=== PATIENT | male | born 1935 | race Caucasian/White ===

== ENCOUNTER 2018-01-10 07:44 | Outpatient (CLI) | payer MEDICARE, OTHER ==
--- NOTE | 2018-01-10 11:34 | PET ---
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 Exam requested for staging. TECHNIQUE: PET scanning with CT attenuation correction was performed from the vertex through thighs following th e intravenous administration of 9.3 mCi F18-FDG in the left antecubital fossa. Imaging was performed after an uptake interval of 54 minutes. COMPARISON: None. CORRELATION: CT neck dated 12/23/17 from [facility] [place]. FINDINGS: There is hypermetabolic activity in the left parotid mass with a SUV of 12.2. No jaspal hypermetabolism is seen in the neck, chest, axilla, abdomen, pelvis, or inguinal regions. No hypermetabolic pulmonary nodules, liver, adrenal, or skeletal lesions are seen. There is physiologic activity in the GI and tracts and the brain. The CT scan used for attenuation correction demonstrates no evidence of pleural effusions or ascites. There is sigmoid diverticulosis and a small hiatal hernia. IMPRESSION: Left parotid gland malignancy without evidence of metastatic disease. POS: [facility]
== END 2018-01-10 07:45 | disposition home or self-care (01) ==
LOC: PET 07:44
PROVIDERS: ATTEND Internal Medicine Hematology & Oncology
DX: C07 Malignant neoplasm of parotid gland (principal)
CPT/HCPCS: 78815; A9552

== ENCOUNTER 2018-01-29 08:10 | Day surgery (SDC) | payer MEDICARE, OTHER ==
[2018-01-28 12:14] VITALS: BMI 25.0
[2018-01-29] MEDS ORDERED: Lidocaine 2% PF 5 ML VIAL ONE (10:03)
[2018-01-29] MEDS ORDERED: Bupivacaine/Epinephrine 0.25% 30 ML VIAL ONE (10:03)
[2018-01-29] MEDS ORDERED: CEFAZOLIN 2 GM/50 ML BAG ONE (10:17)
[2018-01-29] MEDS ORDERED: Fentanyl 100 MCG/2 ML VIAL ONE (10:29)
--- NOTE | 2018-01-29 13:28 | RAD ---
FRONTAL RADIOGRAPH CHEST: Date: 01-29-18 Comparison: None. History: Evaluate chest following Mediport placement. FINDINGS: There are degenerative changes involving the acromioclavicular and coracoclavicular interspace on the right. There is right sided port-a-cath with distal tip overlying the region of the SVC. There is no pneumothorax or pleural fluid and no focal consolidation or alveolar edema. IMPRESSION: Right sided port-a-cath with no evidence for pneumothorax. POS: [facility]
--- NOTE | 2018-01-31 13:23 | PDOC.OP ---
Operative Note - Operative Note Operative Note: PROCEDURE: Right internal jugular MediPort placement with ultrasound and fluoroscopic guidance SURGEON: Digna Fuentes M.D. 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 Chemotherapy has been recommended and the oncologist has requested MediPort placement for this. OPERATIVE PROCEDURE IN DETAIL: After informed consent was obtained and appropriate preoperative antibiotics were administered, the patient was taken to the operating room and placed in supine position and monitored anesthesia care was administered. The patient was then placed in Trendelenburg position and the subclavian vein accessed easily on the first attempt with excellent flow of dark venous non-pulsatile blood. A wire threaded easily and it repeatedly went up into the right IJ instead of into the superior vena cava despite multiple efforts to direct it downward. The decision was made to place the Mediport in the right internal jugular vein. A sterile ultrasound probe was used to find the patent compressible vein which was accessed under direct ultrasound guidance. A wire advanced easily and was confirmed to be in the patent compressible vein by ultrasound and the tip in the superior vena cava by fluoroscopy. Additional local anesthesia was infused to the skin and subcutaneous tissues of the right neck and chest. A skin incision was made on the right chest and a subcutaneous pocket developed inferiorly. A Mediport was obtained and confirmed to fit in the subcutaneous pocket. This was secured inferiorly to the pectoralis fascia with a Prolene suture, which was clamped, but not tied. The Mediport tubing was then tunneled from this area to the right IJ access site. A dilator and sheath were then placed over the wire and the dilator and wire removed leaving the sheath in place. The clamped MediPort tubing was placed through the sheath, which was then split and removed leaving the MediPort tubing in place. The tubing was adjusted until the tip was confirmed by fluoroscopy to be in the superior vena cava just above the atrium. The tubing was clamped at the skin level at the chest and cut and the tubing secured to the port, which was then placed in the subcutaneous pocket. The previously placed suture was secured and two additional sutures were placed to fix the port in place within the pocket. The port was aspirated with the Johnston needle and had excellent flow of dark venous non-pulsatile blood and easily flushed without resistance. The subcutaneous tissues were closed with a running Monocryl suture, following which the skin was closed with a running subcuticular Monocryl suture. Dermabond dressings were placed and the hub was again accessed through the skin and confirmed to easily aspirate and easily flush. The course of the catheter was confirmed by fluoroscopy to be smooth with the tip appropriately located in the superior vena cava. The patient was taken her back to the day stay unit in good condition. Estimated blood loss was minimal. There were no complications. There were no specimens.
== END 2018-01-30 12:25 | disposition home or self-care (01) ==
LOC: SDC 08:10
PROVIDERS: ATTEND Surgery
PROC: 0JH63WZ Insertion of Totally Implantable Vascular Access Device into Chest Subcutaneous Tissue and Fascia, Percutaneous Approach (ICD-10-PCS; principal; 2018-01-29)
DX: C07 Malignant neoplasm of parotid gland (principal); E11.9 Type 2 diabetes mellitus without complications; Z79.84 Long term (current) use of oral hypoglycemic drugs; Z79.899 Other long term (current) drug therapy; Z88.2 Allergy status to sulfonamides
CPT/HCPCS: 36561; 71045; C1788; J1642; J2001; J3010

== ENCOUNTER 2018-04-28 13:57 | Outpatient (CLI) | payer MEDICARE, OTHER ==
[~2018-04-28 13:57] MED LIST: Iopamidol 370 76% 100 ML VIAL ONE
--- NOTE | 2018-04-28 15:58 | CT ---
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 Status post radiation. COMPARISON: 12/23/2017 FINDINGS: The visualized brain parenchyma is unremarkable. Adequate aeration of the visualized sinuses and mas toid air cells. Bilateral ocular lenses are appropriately located. Both globes are intact. Retrobulbar fat is prese rved. Midline fatty raphe of the tongue is preserved. No obvious masses within the oral cavity. The epigl ottis has a normal caliber. Pre-epiglottic fat is preserved. The larynx is unremarkable. Symmetric attenuation of the parotid and submandibular glands. Symmetric attenuation of the sternocl eidomastoid muscles. No significant stenosis in the great vessels of the neck. Cervical spine vertebral body height is maintained. There is no fracture. Stable degenerative thompson e with varying central canal stenosis and neural foraminal narrowing. Upper mediastinum and lung apices are unremarkable. There is no evidence of lymphadenopathy by size criteria. Stable 4 mm nodule in the right upper lobe. IMPRESSION: 1. No evidence of soft tissue neck lymphadenopathy. 2. Interval resolution of previously noted mass in the tail of the left parotid gland. POS: [facility]
== END 2018-04-28 13:58 | disposition home or self-care (01) ==
LOC: BICCT 13:57
PROVIDERS: ATTEND Radiology Radiation Oncology
DX: C76.0 Malignant neoplasm of head, face and neck (principal); R59.0 Localized enlarged lymph nodes; K11.8 Other diseases of salivary glands
CPT/HCPCS: 70491; 82565; Q9967

== ENCOUNTER 2018-05-05 16:23 | Outpatient (CLI) | payer MEDICARE, OTHER ==
[2018-05-05] MEDS ORDERED: Iopamidol 300 61% 30 ML VIAL ONE (17:27)
--- NOTE | 2018-05-06 09:48 | RAD ---
VASCULAR ACCESS PORT CHECK: 05/05/2018 HISTORY: An 82-year-old male with pain at the site of the vascular access port, in the right anterior upper ch est. TECHNIQUE: The patient arrived at the fluoroscopy suite with the Johnston needle already accessing the right IJ imp lantable vascular access port. The Johnston needle was injected with Isovue during brief, intermittent fluoroscopy. Afterwards, the Johnston needle was flushed with normal saline, and then heparinized fidel l saline. The Johnston needle was removed, and a Band-Aid was applied. The patient tolerated the proce dure well. No complications. FINDINGS: The access port is easily aspirated with blood draw return. Injection with iodinated contrast is met with no excessive resistance. There is free flow of contrast material into the SVC and right atrium . There is no extravasation of contrast material. The vascular access port clears after injection o f normal saline. The ladle watcher radiograph demonstrates right IJ implantable vascular access port, with t he distal tip in the SVC. The lungs are clear. The cardiomediastinal silhouette is normal. No pneu mothorax. The lateral costophrenic angles are sharp. There is what appears to be a probable chronic grade 2 right AC joint sprain. IMPRESSION: 1. Functioning, intact right internal jugular implantable vascular access port. 2. Chronic grade 2 right acromioclavicular joint sprain. POS: [facility]
== END 2018-05-05 16:24 | disposition home or self-care (01) ==
LOC: RAD 16:23
PROVIDERS: ATTEND Internal Medicine Hematology & Oncology
DX: T82.848A Pain due to vascular prosthetic devices, implants and grafts, initial encounter (principal); I82.220 Acute embolism and thrombosis of inferior vena cava; S43.51XD Sprain of right acromioclavicular joint, subsequent encounter
CPT/HCPCS: 36598; Q9967